=== PATIENT | male | born 1995 | race Caucasian/White ===

== ENCOUNTER 2019-04-23 22:45 | Emergency (ER) | payer OTHER ==
[~2019-04-23] VITALS: Ht 180.3 cm; Wt 79.4 kg
[2019-04-23 23:56] VITALS: BP 151/86
== END 2019-04-23 23:58 | disposition home or self-care (01) ==
LOC: M.ERS 22:45
DX: S43.102A Unspecified dislocation of left acromioclavicular joint, initial encounter (principal); V19.49XA Pedal cycle driver injured in collision with other motor vehicles in traffic accident, initial encounter; Y93.89 Activity, other specified; Y92.89 Other specified places as the place of occurrence of the external cause; Y99.8 Other external cause status